=== PATIENT | male | born 2000 | race Caucasian/White ===

== ENCOUNTER 2023-05-22 18:52 | Emergency (ER) | payer SELFPAY ==
[~2023-05-22] VITALS: Ht 177.8 cm; Wt 88.5 kg
== END 2023-05-22 20:39 | disposition home or self-care (01) ==
LOC: ED 18:52
DX: S56.413A Strain of extensor muscle, fascia and tendon of right middle finger at forearm level, initial encounter (principal); S60.031A Contusion of right middle finger without damage to nail, initial encounter; W23.0XXA Caught, crushed, jammed, or pinched between moving objects, initial encounter; Y93.89 Activity, other specified; Y92.89 Other specified places as the place of occurrence of the external cause; Y99.8 Other external cause status

== ENCOUNTER 2023-07-18 22:08 | Emergency (ER) | payer SELFPAY ==
[~2023-07-18] VITALS: Ht 180.3 cm; Wt 78.5 kg
[2023-07-18 22:47] LABS: BASO % 0.4 % (0.0-1.0); EOS % 0.5 % (1.0-4.0); HEMATOCRIT 45.3 % (42.0-52.0); LYMPH # 2.2 10*3/uL (1.3-4.4); LYMPH % 29.4 % (27.0-41.0); MEAN CORPUSCULAR HGB 30.3 pg (27.0-31.0); MEAN PLATELET VOLUME 9.2 fl (9.6-12.3); MONO # 0.5 10*3/uL (0.1-1.0); MONO % 6.5 % (3.0-9.0); NEUT # 4.6 10*3/uL (2.3-7.9); NEUT % 63.2 % (47.0-73.0); PLATELET COUNT AUTOMATED 199 10*3/uL (130-400); RED BLOOD COUNT 5.09 10*6/uL (4.50-5.90); RED CELL DISTRI WIDTH 12.2 % (0-14.5); WHITE BLOOD COUNT 7.3 10*3/uL (4.8-10.8)
[2023-07-18 23:13] LABS: BUN 17 mg/dl (9-23); CHLORIDE 106 mmol/L (98-107); CPK 112 U/L (34-171); POTASSIUM 4.2 mmol/L (3.4-5.1)
[2023-07-18 23:14] LABS: ETHYL ALCOHOL < 3.0 mg/dl (<3)
[2023-07-18 23:27] LABS: BILIRUBIN Negative (Negative); BLOOD Negative (Negative); CLARITY Clear (Clear); COLOR Yellow (Yellow); GLUCOSE Negative (Negative); KETONE 1+ (Negative); LEUKO ESTERASE Trace (Negative); NITRITE Negative (Negative); SPECIFIC GRAVITY >= 1.030 (1.001-1.030)
[2023-07-18 23:34] LABS: URINE AMPHETAMINES Negative (1000ng/ml); URINE BARBITURATES Negative (200ng/ml); URINE BENZODIAZEPINES Negative (200ng/ml); URINE CANNABINOIDS (THC) Negative (50ng/ml); URINE COCAINE Negative (300ng/ml); URINE METHADONE Negative (300ng/ml); URINE OPIATES Negative (300ng/ml); URINE PHENCYCLIDINE Negative (25ng/ml)
[2023-07-18 23:42] LABS: RBC 0-2 rbc/hpf (0-2)
== END 2023-07-19 10:40 | disposition home or self-care (01) ==
LOC: ED 22:08
PROVIDERS: Nurse Practitioner
DX: F43.21 Adjustment disorder with depressed mood (principal); Z20.822 Contact with and (suspected) exposure to COVID-19; F41.9 Anxiety disorder, unspecified; F32.A Depression, unspecified; F90.9 Attention-deficit hyperactivity disorder, unspecified type; Z79.899 Other long term (current) drug therapy

== ENCOUNTER 2023-11-08 19:44 | Emergency (ER) | payer MEDICAID ==
[~2023-11-08] VITALS: Ht 177.8 cm; Wt 72.6 kg
[2023-11-08] MEDS ORDERED: methylPREDNISolone sod succ 125 MG VIAL IM ONE (20:05)
[2023-11-08] MEDS ORDERED: PREDNISONE20 M1 PO (20:07)
== END 2023-11-08 20:16 | disposition home or self-care (01) ==
LOC: ED 19:44
DX: L23.7 Allergic contact dermatitis due to plants, except food (principal); F41.9 Anxiety disorder, unspecified; F32.A Depression, unspecified; F90.9 Attention-deficit hyperactivity disorder, unspecified type

== ENCOUNTER 2023-12-03 16:46 | Emergency (ER) | payer MEDICAID ==
[~2023-12-03] VITALS: Ht 172.7 cm; Wt 54.4 kg
[~2023-12-03 16:46] MED LIST: PREDNISONE20 M1 PO
[2023-12-03] MEDS ORDERED: methylPREDNISolone sod succ 125 MG VIAL IM ONE (17:25)
[2023-12-03] MEDS ORDERED: PREDNISONE20 M1 PO (17:29)
== END 2023-12-03 17:27 | disposition home or self-care (01) ==
LOC: ED 16:46
DX: L25.9 Unspecified contact dermatitis, unspecified cause (principal); F41.9 Anxiety disorder, unspecified; F32.A Depression, unspecified; F90.9 Attention-deficit hyperactivity disorder, unspecified type

== ENCOUNTER 2024-02-02 18:32 | Emergency (ER) | payer MEDICAID ==
[~2024-02-02] VITALS: Ht 180.3 cm; Wt 77.1 kg
[2024-02-02] MEDS ORDERED: NAPROSYN500 MG PO (19:37)
== END 2024-02-02 19:45 | disposition home or self-care (01) ==
LOC: ED 18:32
DX: S60.221A Contusion of right hand, initial encounter (principal); F41.9 Anxiety disorder, unspecified; F32.A Depression, unspecified; F90.9 Attention-deficit hyperactivity disorder, unspecified type; W22.8XXA Striking against or struck by other objects, initial encounter; Y93.89 Activity, other specified; Y92.009 Unspecified place in unspecified non-institutional (private) residence as the place of occurrence of the external cause; Y99.8 Other external cause status

== ENCOUNTER 2024-05-26 21:38 | Emergency (ER) | payer OTHER ==
[~2024-05-26] VITALS: Ht 177.8 cm; Wt 81.7 kg
[~2024-05-26 21:38] MED LIST changes: +NAPROSYN500 MG PO
[2024-05-26] MEDS ORDERED: Ketorolac Tromethamine 60 MG/2 ML VIAL IM ONE (22:40)
[2024-05-26] MEDS ORDERED: NAPROXEN250 MG PO (23:30)
== END 2024-05-26 23:50 | disposition home or self-care (01) ==
LOC: ED 21:38
DX: S46.911A Strain of unspecified muscle, fascia and tendon at shoulder and upper arm level, right arm, initial encounter (principal); Z79.899 Other long term (current) drug therapy; X50.0XXA Overexertion from strenuous movement or load, initial encounter; Y93.89 Activity, other specified; Y92.69 Other specified industrial and construction area as the place of occurrence of the external cause; Y99.0 Civilian activity done for income or pay